=== PATIENT | female | born 1995 | race Caucasian/White ===

== ENCOUNTER 2017-05-29 22:59 | Observation (INO) | payer BC ==
[~2017-05-29] VITALS: Ht 162.6 cm; Wt 119.9 kg
[2017-05-29 23:52] VITALS: BP 125/74; PULSE 80; TEMP 97.9
[2017-05-30] VITALS (11 sets, daily range): BP systolic 88–180; BP diastolic 49–67; PULSE 73–92; TEMP 97.6–99.2
[2017-05-30] MEDS ORDERED: EFFEXOR XR75 MG/CAP PO (00:57)
[2017-05-30] MEDS ORDERED: DESYREL 100MG100 MG PO (00:58)
[2017-05-30] MEDS ORDERED: PERCOCET 325 MG1 TA2 PO (11:11)
[2017-05-30] MEDS ORDERED: COLACE 100100 MG/CAP PO (11:12)
[2017-05-30] MEDS ORDERED: MOTRIN 800800 MG/TAB PO (11:12)
[2017-05-31 02:00] VITALS: BP 101/54; PULSE 68; TEMP 97.7
[2017-05-31 05:46] VITALS: BP 103/52; PULSE 56; TEMP 97.5
[2017-05-31 09:25] VITALS: BP 98/57; PULSE 60; TEMP 97.9
[2017-05-31 14:06] VITALS: BP 99/50; PULSE 74; TEMP 97.8
[2017-05-31 14:34] LABS: PH 7 (5-8); URINE APPEARANCE Hazy; URINE BACTERIA Rare /hpf; URINE BILIRUBIN Negative (NEGATIVE); URINE BLOOD Negative (NEGATIVE); URINE COLOR Yellow; URINE GLUCOSE Negative (NEGATIVE); URINE KETONE Negative (NEGATIVE); URINE RBC 0-2 /hpf
== END 2017-05-31 15:10 | disposition home or self-care (01) ==
LOC: SURG 22:59
PROVIDERS: Surgery
DX: K35.80 Unspecified acute appendicitis (principal); F41.9 Anxiety disorder, unspecified; F32.9 Major depressive disorder, single episode, unspecified; Z87.442 Personal history of urinary calculi; F17.210 Nicotine dependence, cigarettes, uncomplicated; Z90.49 Acquired absence of other specified parts of digestive tract; E66.9 Obesity, unspecified
CPT/HCPCS: G0008; G0378; J1100; J1170; J1335; J1885; J2405; J2704; J3010; J7050; J7120